=== PATIENT | male | born 1995 | race Caucasian/White ===

== ENCOUNTER 2019-02-15 22:43 | Emergency (ER) | payer OTHER ==
[~2019-02-15] VITALS: Ht 175.3 cm; Wt 61.2 kg
[2019-02-15 23:08] LABS: URINE BILIRUBIN NEGATIVE (Negative); URINE BLOOD NEGATIVE (Negative); URINE CLARITY CLEAR; URINE COLOR YELLOW; URINE GLUCOSE-RANDOM* NEGATIVE (Negative); URINE KETONES NEGATIVE (Negative); URINE LEUKOCYTES-REFLEX NEGATIVE (Negative); URINE NITRITE-REFLEX NEGATIVE (Negative); URINE PROTEIN (DIPSTICK) NEGATIVE (Negative)
[2019-02-15 23:19] LABS: AMP/METHAMP Negative (Negative); BARBITURATES Negative (Negative); BENZODIAZEPINES Negative (Negative); COCAINE Negative (Negative); METHADONE Negative (Negative); OPIATES Negative (Negative); PCP Negative (Negative)
[2019-02-15 23:21] LABS: HEMATOCRIT 39.4 % (42.0-52.0); HEMOGLOBIN 13.3 gm/dL (14.0-18.0); MCH 31.3 pg (26.0-34.0); MCHC 33.8 g/dL (28.0-37.0); MCV 92.5 fL (80.0-100.0); RBC 4.26 mil/uL (4.50-6.00); RDW 14.3 % (10.5-14.5); WBC 6.5 thou/uL (4.0-11.0)
[2019-02-15 23:37] LABS: ANION GAP 8 mmol/L (7-16); BUN 13 mg/dL (7-18); CALCIUM 9.1 mg/dL (8.5-10.1); CHLORIDE 102 mmol/L (98-107); CO2 29 mmol/L (21-32); CREATININE 0.9 mg/dL (0.7-1.3); GLUCOSE 88 mg/dL (74-106); POTASSIUM 4.1 mmol/L (3.5-5.1); SALICYLATE < 2.8 mg/dL (2.8-20.0); SODIUM 139 mmol/L (136-145)
[2019-02-16] MEDS ORDERED: NOHOMEMEDICATIONS (00:57)
--- NOTE | 2019-02-17 12:34 | NUR ---
Consult rec'd and case discussed with the ER physician. Homeless hotline and psych eval recommended. Pt's commercial escrow officer may be an option as well if he does not want to return to the [facility] to admission.
[2019-02-17 19:45] VITALS: BP 104/59
== END 2019-02-17 19:45 | disposition home or self-care (01) ==
LOC: ER 22:43
PROVIDERS: Emergency Medicine
DX: R45.851 Suicidal ideations (principal); F17.210 Nicotine dependence, cigarettes, uncomplicated